=== PATIENT | female | born 1990 | race Caucasian/White ===

== ENCOUNTER 2021-12-31 21:46 | Inpatient (IN) ==
[~2021-12-31 21:46] MED LIST: Buffered Lidocaine 1% SYRIN 1 ml INTRADERM ONE
[2021-12-31] MEDS ORDERED: Penicillin G Potassium IV 5,000,000 UNITS in NS 0.9% 100 ml BAG 100 ML IVPB ONE (23:09)
[2021-12-31] MEDS ORDERED: Lactated Ringers 1000 ml BAG 1,000 ML IV SCH (23:45)
[2022-01-01] MEDS ORDERED: Promethazine INJ(RESTRICTED) 25 MG/ML 1 ml VIAL IV PRN (00:14)
[2022-01-01] MEDS ORDERED: Nalbuphine 10 MG/ML 1 ML VIAL IV PRN (00:14)
[2022-01-01 00:21] LABS: ABS Eosinophils 0.3 10^3/ul (0-0.6); ABS Lymphocytes 2.7 10^3/ul (1.0-4.8); ABS Monocytes 0.8 10^3/ul (0-0.8); ABS Neutrophils 7.5 10^3/ul (1.5-7.7); Eosinophil % 2.3 %; Hematocrit 39 % (35-47); Hemoglobin 12.7 g/dL (12.0-16.0); Mean Corpuscular HGB Conc 33 g/dL (31-36); Mean Corpuscular Hemoglobin 28 pg (27-31); Mean Corpuscular Volume 85 fL (80-97); Mean Platelet Volume 9.2 fL (7.4-10.4); Platelet Count 163 10^3/uL (150-450); Red Blood Count 4.57 10^6 /uL (3.70-4.87); Red Cell Distribution Width 15 % (10-15); White Blood Count 11.3 10^3/uL (3.5-10.8)
[2022-01-01 00:43] LABS: Urine Benzodiazepine Screen None Detected (None Detect); Urine Cannabinoids Screen None Detected (None Detect); Urine Opiates Screen None Detected (None Detect)
[2022-01-01] MEDS: Penicillin G Potassium IV 3,000,000 UNITS in NS 0.9% 100 ml BAG 100 ML IVPB SCH ×4 (04:13→16:08)
[2022-01-01] MEDS ORDERED: Lidocaine 1.5% EPI 1:200,000 30 ML SDV ONE (07:50)
[2022-01-01] MEDS: Lactated Ringers 1000 ml BAG 1,000 ML IV ONE ×2 (07:56→09:19)
[2022-01-01] MEDS ORDERED: Lidocaine 2% w/ EPI 1:200,000 MPF 20 ML SDV VIAL ONE (07:59)
[2022-01-01] MEDS: OBEPIDURAL (200 ML) 200 ML EPIDURAL ONE ×2 (08:05→23:41)
[2022-01-01] MEDS ORDERED: Ondansetron 4 mg VIAL 2 MG/ML 2 ml VIAL IV PRN (08:28)
[2022-01-01] MEDS ORDERED: Ondansetron 4 mg VIAL 2 MG/ML 2 ml VIAL ONE (08:49)
[2022-01-01 09:50] LABS: Urine Appearance Clear; Urine Bilirubin Negative (Negative); Urine Blood 3+ (Large) (Negative); Urine Color Yellow; Urine Glucose Negative (Negative); Urine Ketones Negative (Negative); Urine Nitrite Negative (Negative); Urine Protein 2+ (100 mg/dL) (Negative); Urine Specific Gravity 1.025 (1.005-1.030); Urine Urobilinogen 0.2 (Negative) (Negative)
[2022-01-01 10:03] LABS: Urine Bacteria Absent (Absent); Urine Red Blood Cell 3+(>10/hpf) (Absent); Urine Squamous Epithelial Cell Present (Absent); Urine White Blood Cell 1+(6-10/hpf) (Absent)
[2022-01-01] MEDS: Oxytocin in LR 20,000 MILLI.UNIT/1,000 ML BAG IV ONE (18:01)
[2022-01-01] MEDS ORDERED: Glycerin ADULT 2.4 gm SUPP PR PRN (18:55)
[2022-01-01] MEDS ORDERED: Witch Hazel PAD JAR TOPICAL PRN (18:55)
[2022-01-01] MEDS ORDERED: Dibucaine 1% OINT 28.35 GM TUBE PR PRN (18:55)
[2022-01-01] MEDS ORDERED: Lactated Ringers 1000 ml BAG 1,000 ML IV SCH (19:00)
[2022-01-01] MEDS ORDERED: Oxytocin in LR 20,000 MILLI.UNIT/1,000 ML BAG IV SCH (19:00)
[2022-01-01] MEDS ORDERED: Albuterol HFA INHALER 8 gm MDI INH PRN (22:16)
[2022-01-01] MEDS ORDERED: Mometasone/Formoter 200/5 MDI INH SCH (23:00)
[2022-01-02] MEDS ORDERED: Phenylephrine 40 mcg/mL 10mL (400mcg) SYRINGE ONE (00:01)
[2022-01-02] MEDS: Oxytocin in LR 20,000 MILLI.UNIT/1,000 ML BAG IV ONE (00:16)
[2022-01-02] MEDS: Penicillin G Potassium IV 3,000,000 UNITS in NS 0.9% 100 ml BAG 100 ML IVPB SCH ×2 (00:17→06:14)
[2022-01-02 07:29] LABS: ABS Basophils 0.1 10^3/ul (0-0.2); ABS Eosinophils 0.3 10^3/ul (0-0.6); ABS Lymphocytes 3.5 10^3/ul (1.0-4.8); ABS Neutrophils 9.9 10^3/ul (1.5-7.7); Eosinophil % 1.8 %; Hematocrit 36 % (35-47); Hemoglobin 12.4 g/dL (12.0-16.0); Lymphocyte % 23.7 %; Mean Corpuscular HGB Conc 35 g/dL (31-36); Mean Corpuscular Hemoglobin 30 pg (27-31); Mean Corpuscular Volume 85 fL (80-97); Mean Platelet Volume 9.3 fL (7.4-10.4); Platelet Count 167 10^3/uL (150-450); Red Blood Count 4.18 10^6 /uL (3.70-4.87); Red Cell Distribution Width 15 % (10-15); White Blood Count 14.7 10^3/uL (3.5-10.8)
[2022-01-03 08:40] VITALS: BP 123/73
[2022-01-03] MEDS ORDERED: Influenza vaccine *QUAD* *2022-23* 0.5 ML SYRINGE IM ONE (16:27)
== END 2022-01-03 18:25 | disposition home or self-care (01) | DRG 560 ==
LOC: MCHOBOUT 21:46 → MCHOB 23:16
PROVIDERS: ADMIT Midwife; ATTEND Midwife